=== PATIENT | female | born 1980 | race Caucasian/White ===

== ENCOUNTER 2022-12-19 06:00 | Inpatient (IN) | payer BC ==
[~2022-12-19] VITALS: Ht 157.5 cm; Wt 57.6 kg
[2022-12-19] MEDS ORDERED: ceFAZolin SODIUM 2 GM in D5W 100 ML IV ONE (06:30)
[2022-12-19 07:11] LABS: HCG,QUAL RESULT NEGATIVE (NEGATIVE)
[2022-12-19] MEDS ORDERED: SEVOFLURANE 15 MIN GAS INH ONE (09:40)
[2022-12-19] MEDS ORDERED: cefOXitin SODIUM 2 GM/VIAL (MEFOXIN) ONE (09:40)
[2022-12-19] MEDS ORDERED: SUCCINYLCHOLINE CHLORIDE 20 MG/ML(QUELICIN) ONE (09:40)
[2022-12-19] MEDS ORDERED: fentaNYL CITRATE/PF 100 MCG/2 ML AMP ONE (09:40)
[2022-12-19] MEDS ORDERED: LR 1,000 ML IV.SOLN IV ONE (09:40)
[2022-12-19] MEDS ORDERED: DEXAMETHASONE SOD PHOSPHATE 4 MG/ML VIAL ONE (09:40)
[2022-12-19] MEDS ORDERED: PROPOFOL 200MG/ 20ML VIAL (DIPRIVAN) IV ONE (09:40)
[2022-12-19] MEDS ORDERED: METOCLOPRAMIDE HCL 10 MG/2 ML VIAL ONE (09:40)
[2022-12-19] MEDS ORDERED: BUPIVACAINE /PF 0.25% 30 ML VIAL INJ ONE (09:40)
[2022-12-19] MEDS ORDERED: NS 1000 ML IV.SOLN IV ONE (09:40)
[2022-12-19] MEDS ORDERED: MEPERIDINE HCL/PF 100 MG/ML VIAL ONE (09:40)
[2022-12-19] MEDS ORDERED: SUGAMMADEX SODIUM 200 MG/2 ML VIAL IV ONE (09:40)
[2022-12-19] MEDS ORDERED: NS IRRIG SOLN 1000 ML IR ONE (09:40)
[2022-12-19] MEDS ORDERED: BUPIVACAINE LIPOSOME/PF 266 MG/20 ML VIAL INFIL ONE (10:40)
[2022-12-19] MEDS ORDERED: BACL10TA PO (12:09)
[2022-12-19] MEDS ORDERED: NEU300 PO (12:09)
[2022-12-19] MEDS ORDERED: NALOXONE HCL 0.4 MG/ML AMP (NARCAN) IVP PRN ×3 (12:30)
[2022-12-19] MEDS ORDERED: ACETAMINOPHEN 325 MG TABLET PO PRN (12:30)
[2022-12-19] MEDS ORDERED: HYDROcodone/ACETAMIN 5-325 MG TAB (NORCO/ VICODIN) PO PRN ×2 (12:30)
[2022-12-19 12:50] LABS: HEMATOCRIT 41.8 % (36-48); HEMOGLOBIN 13.8 g/dL (12.0-16.0)
[2022-12-19 13:05] LABS: CALCIUM 7.8 mg/dL (8.4-11.0); CREATININE 0.83 mg/dL (0.55-1.30)
[2022-12-19] MEDS: HYDROmorphone 1 MG/ML INJ. CARTRIDGE ONE ×2 (13:11→13:30)
[2022-12-19] MEDS ORDERED: ONDANSETRON HCL 4 MG/2 ML VIAL IVP PRN (13:15)
[2022-12-19] MEDS ORDERED: MEPERIDINE HCL/PF 25 MG/ML DISP.SYRIN IVP PRN (13:15)
[2022-12-19] MEDS ORDERED: METOCLOPRAMIDE HCL 10 MG/2 ML VIAL IVP PRN (13:15)
[2022-12-19] MEDS ORDERED: HYDROmorphone 1 MG/ML INJ. CARTRIDGE IVP PRN (13:15)
[2022-12-19] MEDS ORDERED: LR 1,000 ML IV SCH (13:15)
[2022-12-19] MEDS ORDERED: KETOROLAC TROMETHAMINE 30 MG VIAL IVP PRN (13:15)
[2022-12-19] MEDS ORDERED: HYDROmorphone 1 MG/ML INJ. CARTRIDGE ONE (13:53)
[2022-12-19] MEDS ORDERED: KETOROLAC TROMETHAMINE 30 MG VIAL ONE (14:14)
[2022-12-19] MEDS: ONDANSETRON HCL 4 MG/2 ML VIAL IVP PRN ×2 (15:13→21:45)
[2022-12-19 15:38] VITALS: BP_SYST 113; PULSE 66; RESP 18; TEMP 97; O2SAT 98
[2022-12-19 16:00] VITALS: BP_SYST 119; PULSE 76; RESP 18; TEMP 97; O2SAT 98
[2022-12-19] MEDS: HYDROmorphone 1 MG/ML INJ. CARTRIDGE IVP PRN ×2 (18:07→21:44)
[2022-12-19 19:00] VITALS: BP_SYST 115; PULSE 59; RESP 16; TEMP 96.6; O2SAT 100
[2022-12-19 20:00] VITALS: BP_SYST 115; PULSE 59; RESP 16; TEMP 96.6; O2SAT 100
[2022-12-19] MEDS: cefOXitin SODIUM 2 GM in D5W 100 ML IV SCH (20:23)
[2022-12-19] MEDS: FAMOTIDINE PF 20 MG/2 ML VIAL IVP SCH (20:23)
[2022-12-19] MEDS: D5/0.45 NS 1,000 ML IV SCH (22:30)
[2022-12-20] MEDS: HYDROmorphone 1 MG/ML INJ. CARTRIDGE IVP PRN ×8 (01:55→22:39)
[2022-12-20] MEDS: ONDANSETRON HCL 4 MG/2 ML VIAL IVP PRN ×4 (02:02→20:16)
[2022-12-20] MEDS: D5/0.45 NS 1,000 ML IV SCH ×3 (04:09→14:58)
[2022-12-20 04:58] LABS: BASOPHILS % (AUTO) 0.2 % (0.0-2.0); HEMATOCRIT 36.5 % (36-48); HEMOGLOBIN 12.2 g/dL (12.0-16.0); LYMPHOCYTES # (AUTO) 1.6 K/uL (1.0-5.5); LYMPHOCYTES % (AUTO) 10.6 % (20.5-51.5); MEAN CORPUSCULAR HEMOGLOBIN 33 pg (27-31); MEAN CORPUSCULAR HGB CONC 33 % (32-36); MEAN CORPUSCULAR VOLUME 98 fL (79.0-98.0); MONOCYTES # (AUTO) 1.1 K/uL (0.0-1.0); MONOCYTES % (AUTO) 7.4 % (1.7-9.3); NEUTROPHILS # (AUTO) 12.6 K/uL (1.8-7.7); NEUTROPHILS % (AUTO) 81.8 % (40.0-70.0); PLATELET COUNT (AUTO) 276 K/uL (130-430); RED BLOOD CELL COUNT(AUTO) 3.74 MIL/uL (4.2-6.2); WHITE BLOOD COUNT (AUTO) 15.5 K/uL (4.8-10.8)
[2022-12-20 05:11] LABS: ALBUMIN 3.1 g/dL (3.4-4.8); CALCIUM 7.7 mg/dL (8.4-11.0); CREATININE 0.63 mg/dL (0.55-1.30); TOTAL BILIRUBIN 0.7 mg/dL (0.0-1.0)
[2022-12-20 08:11] VITALS: BP_SYST 101; PULSE 66; RESP 17; TEMP 96.7; O2SAT 99
[2022-12-20] MEDS: FAMOTIDINE PF 20 MG/2 ML VIAL IVP SCH ×2 (08:48→20:26)
[2022-12-20] MEDS: cefOXitin SODIUM 2 GM in D5W 100 ML IV SCH (08:49)
[2022-12-20] MEDS: ENOXAPARIN SODIUM 30 MG/0.3 ML SYRINGE SUBCUT SCH (08:50)
[2022-12-20 09:17] VITALS: O2SAT 99
[2022-12-20 12:00] VITALS: BP_SYST 110; PULSE 70; RESP 17; TEMP 97.3; O2SAT 100
[2022-12-20] MEDS: METOCLOPRAMIDE HCL 10 MG/2 ML VIAL IVP SCH ×2 (12:18→17:43)
[2022-12-20] MEDS ORDERED: POTASSIUM CHLORIDE 40 MEQ in NS 250 ML IV ONE (13:00)
[2022-12-20] MEDS: GABAPENTIN 300 MG CAPSULE PO SCH ×2 (15:01→20:26)
[2022-12-20 16:02] VITALS: BP_SYST 102; PULSE 72; RESP 17; TEMP 97.2; O2SAT 100
[2022-12-20 20:28] VITALS: BP_SYST 107; PULSE 61; RESP 18; TEMP 98.3; O2SAT 97
[2022-12-21 00:22] VITALS: BP_SYST 108; PULSE 64; RESP 18; TEMP 97.8; O2SAT 96
[2022-12-21] MEDS: METOCLOPRAMIDE HCL 10 MG/2 ML VIAL IVP SCH ×3 (00:24→12:42)
[2022-12-21] MEDS: D5/0.45 NS 1,000 ML IV SCH ×2 (04:30→15:14)
[2022-12-21] MEDS: HYDROmorphone 1 MG/ML INJ. CARTRIDGE IVP PRN ×2 (09:15→12:42)
[2022-12-21] MEDS: ENOXAPARIN SODIUM 30 MG/0.3 ML SYRINGE SUBCUT SCH (09:18)
[2022-12-21] MEDS: GABAPENTIN 300 MG CAPSULE PO SCH (09:18)
[2022-12-21] MEDS: FAMOTIDINE PF 20 MG/2 ML VIAL IVP SCH (09:18)
[2022-12-21 12:00] VITALS: BP_SYST 102; PULSE 72; RESP 20; TEMP 97.8
[2022-12-21 15:27] VITALS: BP_SYST 111; PULSE 76; RESP 18; TEMP 98.8; O2SAT 97
== END 2022-12-21 16:30 | disposition home or self-care (01) | DRG 331 ==
LOC: SMU 06:00 → STU 14:31 → SMU 12-20 11:34
PROVIDERS: ADMIT Colon & Rectal Surgery; ATTEND Colon & Rectal Surgery
PROC: 0DTN0ZZ Resection of Sigmoid Colon, Open Approach (ICD-10-PCS; 2022-12-19)
PROC: 0DJD8ZZ Inspection of Lower Intestinal Tract, Via Natural or Artificial Opening Endoscopic (ICD-10-PCS; principal; 2022-12-19 09:53)
DX: C18.7 Malignant neoplasm of sigmoid colon (principal)
CPT/HCPCS: 36415; 80048; 80053; 84132; 84703; 85018; 85025; 86886; 86900; 86901; 87081; 88305; 88307; 93005; 97116-GP; 97163-GP; C1727; C9290; G0378; J0330; J0690; J0694; J1100; J1170; J1650; J1885; J2175; J2405; J2704; J2765; J3010; J3480; J3490; J7030; J7050; J7060; J7120

== ENCOUNTER 2023-01-01 14:05 | Emergency (ER) | payer BC ==
[~2023-01-01] VITALS: Ht 157.5 cm; Wt 59.4 kg
[~2023-01-01 14:05] MED LIST: BACL10TA PO; NEU300 PO
[2023-01-01 14:42] VITALS: BP_SYST 95; PULSE 71; RESP 16; TEMP 98.1; O2SAT 98
[2023-01-01 15:29] LABS: BASOPHILS % (AUTO) 0.4 % (0.0-2.0); EOSINOPHILS # (AUTO) 0.1 K/uL (0.0-0.4); EOSINOPHILS % (AUTO) 0.7 % (0.0-4.0); HEMATOCRIT 40.3 % (36-48); HEMOGLOBIN 13.5 g/dL (12.0-16.0); LYMPHOCYTES # (AUTO) 1.7 K/uL (1.0-5.5); LYMPHOCYTES % (AUTO) 16.8 % (20.5-51.5); MEAN CORPUSCULAR HEMOGLOBIN 32 pg (27-31); MEAN CORPUSCULAR HGB CONC 33 % (32-36); MEAN CORPUSCULAR VOLUME 97 fL (79.0-98.0); MONOCYTES # (AUTO) 0.6 K/uL (0.0-1.0); MONOCYTES % (AUTO) 6.1 % (1.7-9.3); NEUTROPHILS # (AUTO) 7.7 K/uL (1.8-7.7); PLATELET COUNT (AUTO) 355 K/uL (130-430); RED BLOOD CELL COUNT(AUTO) 4.15 MIL/uL (4.2-6.2); RED CELL DISTRIBUTION WIDTH 12.9 % (9.0-15.0); WHITE BLOOD COUNT (AUTO) 10.2 K/uL (4.8-10.8)
[2023-01-01 15:40] LABS: ANION GAP 9 (5-15); CALCIUM 8.9 mg/dL (8.4-11.0); CHLORIDE 101 mmol/L (98-107); CREATININE 0.65 mg/dL (0.55-1.30); GFR AFRICAN AMERICAN 127 mL/min (>90); GLUCOSE 108 mg/dL (74-106); UREA NITROGEN, BLOOD 11 mg/dL (8-21)
[2023-01-01 15:42] LABS: ACETONE, SERUM NEGATIVE (NEGATIVE)
--- NOTE | 2023-01-01 16:00 | NUR ---
BROUGHT BACK TO BED #7 AND REPORT GIVEN TO RODRIGO
[2023-01-01 16:06] LABS: ALANINE AMINOTRANSFERASE 20 U/L (12-78); ALBUMIN 3.7 g/dL (3.4-4.8); AMYLASE 61 U/L (0-100); ASPARTATE AMINOTRANSFERASE 17 U/L (10-37); LACTATE DEHYDROGENASE 178 U/L (81-234); LIPASE 41 U/L (73-393); TOTAL BILIRUBIN 0.3 mg/dL (0.0-1.0)
--- NOTE | 2023-01-01 16:21 | NUR ---
MD in to evaluate patient at this time.
--- NOTE | 2023-01-01 16:28 | NUR ---
Got urine to check for at this time.
--- NOTE | 2023-01-01 17:06 | NUR ---
Patient given written and verbal discharge instructions and verbalizes understanding. ER MD discussed with patient the results and treatment provided. Patient in stable Patient educated on pain management and to follow up with PMD. Pain Scale 0/10. Opportunity for questions provided and answered. Medication side effect fact sheet provided.
[2023-01-01 17:38] VITALS: BP_SYST 108; PULSE 66; RESP 12; TEMP 98.3; O2SAT 98
== END 2023-01-01 17:06 | disposition home or self-care (01) ==
LOC: SED 14:05
DX: K59.00 Constipation, unspecified (principal); R10.31 Right lower quadrant pain; Z85.038 Personal history of other malignant neoplasm of large intestine; Z79.899 Other long term (current) drug therapy
CPT/HCPCS: 36415; 76376; 80053; 81025; 82009; 82150; 83605; 83615; 83690; 84703; 85025; 99284